=== PATIENT | female | born 1955 | race Caucasian/White ===

== ENCOUNTER 2020-10-04 21:45 | Inpatient (IN) | payer MEDICARE, MEDICAID ==
[~2020-10-04] VITALS: Ht 149.9 cm; Wt 68.0 kg
[2020-10-05 01:33] LABS: COVID AG,FIA SOURCE NASOPHARYNGEAL
[2020-10-05 01:39] LABS: HEMOGLOBIN 14.9 g/dL (12.0-16.0); RED CELL DISTRIBUTION WIDTH 13.5 % (11.5-14.5)
[2020-10-05 01:45] LABS: BASOPHILS % (AUTO) 1.1 % (0.0-2.0); EOSINOPHILS % (AUTO) 5.8 % (1.0-6.0); HEMATOCRIT 45.9 % (36-46); LYMPHOCYTES % (AUTO) 24.5 % (22.0-44.0); MEAN CORPUSCULAR HEMOGLOBIN 29.2 pg (26.0-34.0); MEAN CORPUSCULAR HGB CONC 32.5 G/dL (31.0-37.0); MEAN CORPUSCULAR VOLUME 90 fL (80-100); MONOCYTES # (AUTO) 0.8 K/uL (0.1-1.0); MONOCYTES % (AUTO) 10.2 % (2.0-9.0); NEUTROPHILS # (AUTO) 4.8 K/uL (1.8-7.7); NEUTROPHILS % (AUTO) 58.4 % (40.0-70.0); PLATELET COUNT (AUTO) 174 K/uL (150-450); RED BLOOD CELL COUNT(AUTO) 5.12 MIL/uL (4.00-5.20)
[2020-10-05 01:51] LABS: ANION GAP 7 mmol/L (8-16); CALCIUM, TOTAL 9.1 mg/dL (8.8-10.5); CARBON DIOXIDE 26 mmol/L (22-29); CHLORIDE 107 mmol/L (98-107); CREATININE 0.84 mg/dL (0.60-1.30); GLOMERULAR FILTR. RATE CALC > 60 mL/min (>60); GLUCOSE,RANDOM 108 mg/dL (70-110); POTASSIUM 4.3 mmol/L (3.5-5.1); SODIUM SERUM 140 mmol/L (136-145); UREA NITROGEN, BLOOD 21 mg/dL (7-18)
[2020-10-05 01:55] LABS: D-DIMER 0.39 mg/L FEU (0.00-0.50); PROTHROMBIN TIME 10.4 SEC (9.4-11.6)
[2020-10-05 02:10] LABS: INFLUENZA TYPE A NEGATIVE FOR TYPE A (NEGATIVE); INFLUENZA TYPE B NEGATIVE FOR TYPE B (NEGATIVE)
[2020-10-05 02:13] LABS: B-TYPE NATRIURETIC PEPTIDE 14 pg/mL (0-100)
[2020-10-05 02:15] LABS: ALANINE AMINOTRANSFERASE 56 U/L (12-78); ALBUMIN 3.8 g/dL (3.4-5.0); ALKALINE PHOSPHATASE 83 U/L (46-116); ASPARTATE AMINOTRANSFERASE 27 U/L (15-37); BILIRUBIN,TOTAL 0.2 mg/dL (0.1-1.0); C-REACTIVE PROTEIN QUANT 0.09 mg/dL (0.00-0.30); CREATINE KINASE, TOTAL ONLY 116 U/L (26-192); TOTAL PROTEIN, SERUM 7.3 g/dL (6.4-8.2)
[2020-10-05] MEDS ORDERED: ONDANSETRON HCL 4 MG/2 ML VIAL IVP PRN ×2 (03:00→04:45)
[2020-10-05] MEDS ORDERED: 0.9% SODIUM CHLORIDE 10 ML SYRINGE IVP PRN (03:00)
[2020-10-05] MEDS ORDERED: ACETAMINOPHEN 325 MG TABLET PO PRN ×2 (03:00→04:45)
[2020-10-05] MEDS ORDERED: LEVE250T55 PO (04:55)
[2020-10-05] MEDS ORDERED: CHOL100018 PO (04:55)
[2020-10-05] MEDS ORDERED: ATOR40TA28 PO (04:55)
[2020-10-05] MEDS ORDERED: ASPI-1111 PO (04:55)
[2020-10-05] MEDS ORDERED: DOCU250C14 PO (04:55)
[2020-10-05] MEDS ORDERED: SODIUM CHLORIDE 0.9% 100 ML ONE (04:57)
[2020-10-05] MEDS ORDERED: IOVERSOL 350 MG/ML 100 ML VIAL ONE (04:57)
[2020-10-05 06:38] VITALS: BP 157/94
[2020-10-05 08:35] VITALS: BP 135/68
[2020-10-05] MEDS: ATORVASTATIN CALCIUM 40 MG TABLET PO SCH (09:22)
[2020-10-05] MEDS: CHOLECALCIFEROL (VIT D3) 1,000 UNITS [25 MCG] TABLET PO SCH (09:22)
[2020-10-05] MEDS: HEPARIN SODIUM,PORCINE 5,000 UNITS/ML VIAL SQ SCH ×2 (09:22→16:47)
[2020-10-05] MEDS: ASPIRIN 81 MG DR TABLET PO SCH (09:22)
[2020-10-05] MEDS: LevETIRAcetam 250 MG TABLET PO SCH ×2 (09:23→22:44)
[2020-10-05 15:40] VITALS: BP 118/81
[2020-10-05] MEDS ORDERED: PNEUMOCOCCAL VACCINE POLYVALENT 0.5 ML VIAL [PPSV23] IM ONE (19:00)
[2020-10-05 20:44] VITALS: BP 101/55
[2020-10-06] MEDS: HEPARIN SODIUM,PORCINE 5,000 UNITS/ML VIAL SQ SCH ×3 (00:14→15:53)
[2020-10-06 00:20] VITALS: BP 121/67
[2020-10-06 04:06] VITALS: BP 106/67
[2020-10-06 08:27] LABS: BASOPHILS % (AUTO) 1.3 % (0.0-2.0); EOSINOPHILS % (AUTO) 5.9 % (1.0-6.0); HEMATOCRIT 45.8 % (36-46); HEMOGLOBIN 14.8 g/dL (12.0-16.0); LYMPHOCYTES # (AUTO) 2.8 K/uL (1.0-4.8); LYMPHOCYTES % (AUTO) 36.8 % (22.0-44.0); MEAN CORPUSCULAR HEMOGLOBIN 28.9 pg (26.0-34.0); MEAN CORPUSCULAR HGB CONC 32.3 G/dL (31.0-37.0); MEAN CORPUSCULAR VOLUME 90 fL (80-100); MONOCYTES # (AUTO) 0.7 K/uL (0.1-1.0); MONOCYTES % (AUTO) 9.5 % (2.0-9.0); NEUTROPHILS # (AUTO) 3.6 K/uL (1.8-7.7); NEUTROPHILS % (AUTO) 46.5 % (40.0-70.0); PLATELET COUNT (AUTO) 171 K/uL (150-450); RED BLOOD CELL COUNT(AUTO) 5.11 MIL/uL (4.00-5.20); RED CELL DISTRIBUTION WIDTH 13.5 % (11.5-14.5)
[2020-10-06 08:49] LABS: ALANINE AMINOTRANSFERASE 45 U/L (12-78); ALBUMIN 3.4 g/dL (3.4-5.0); ALKALINE PHOSPHATASE 79 U/L (46-116); ANION GAP 9 mmol/L (8-16); ASPARTATE AMINOTRANSFERASE 24 U/L (15-37); BILIRUBIN,TOTAL 0.4 mg/dL (0.1-1.0); CALCIUM, TOTAL 8.5 mg/dL (8.8-10.5); CARBON DIOXIDE 24 mmol/L (22-29); CHLORIDE 111 mmol/L (98-107); CREATININE 0.76 mg/dL (0.60-1.30); GLOMERULAR FILTR. RATE CALC > 60 mL/min (>60); GLUCOSE,RANDOM 97 mg/dL (70-110); POTASSIUM 4.4 mmol/L (3.5-5.1); SODIUM SERUM 144 mmol/L (136-145); TOTAL PROTEIN, SERUM 6.6 g/dL (6.4-8.2); UREA NITROGEN, BLOOD 20 mg/dL (7-18)
[2020-10-06] MEDS: LevETIRAcetam 250 MG TABLET PO SCH ×2 (09:09→20:14)
[2020-10-06] MEDS: ASPIRIN 81 MG DR TABLET PO SCH (09:09)
[2020-10-06] MEDS: CHOLECALCIFEROL (VIT D3) 1,000 UNITS [25 MCG] TABLET PO SCH (09:09)
[2020-10-06] MEDS: ATORVASTATIN CALCIUM 40 MG TABLET PO SCH (09:09)
[2020-10-06 09:24] VITALS: BP 117/75
[2020-10-06 16:39] VITALS: BP 143/81
[2020-10-06] MEDS ORDERED: LEVE250T55 PO (16:56)
[2020-10-06 20:00] VITALS: BP 137/72
== END 2020-10-06 21:16 | disposition home health service (06) | DRG 951 ==
LOC: EMS 21:45 → 6N 10-05 02:46
PROVIDERS: ADMIT Internal Medicine; ATTEND Internal Medicine
DX: Z20.828 Contact with and (suspected) exposure to other viral communicable diseases (principal); F03.90 Unspecified dementia, unspecified severity, without behavioral disturbance, psychotic disturbance, mood disturbance, and anxiety; E78.5 Hyperlipidemia, unspecified; G40.909 Epilepsy, unspecified, not intractable, without status epilepticus; E55.9 Vitamin D deficiency, unspecified; K59.00 Constipation, unspecified; R30.0 Dysuria; R09.02 Hypoxemia
CPT/HCPCS: 74177; 83605; 85379; 86140; 87081; 87426; 87804; 93005; 97161; 97530; G0238; J1644; J7050; 36415-L1; 36415-TC; 71045-TC; U0003

== ENCOUNTER 2020-12-27 21:29 | Inpatient (IN) | payer MEDICARE, MEDICAID ==
[~2020-12-27 21:29] MED LIST: ASPI-1444 PO; ATOR40TA28 PO; CHOL100044 PO; DOCU250C14 PO; LEVE250T55 PO
[2020-12-27 22:01] VITALS: BP 152/63
[2020-12-27] MEDS ORDERED: DEXTROSE 5%-WATER 1,000 ML IV ONE (22:15)
[2020-12-27] MEDS ORDERED: LevETIRAcetam 1,000 MG in DEXTROSE 5%-WATER 100 ML IV ONE (22:30)
[2020-12-27 23:46] VITALS: BP 150/71
[2020-12-28 02:47] LABS: COVID AG,FIA SOURCE NASAL SWAB
[2020-12-28 04:44] VITALS: BP 138/83
[2020-12-28 06:26] LABS: BASOPHILS % (AUTO) 1.1 % (0.0-2.0); EOSINOPHILS % (AUTO) 2.3 % (1.0-6.0); HEMOGLOBIN 13.7 g/dL (12.0-16.0); LYMPHOCYTES # (AUTO) 2.5 K/uL (1.0-4.8); LYMPHOCYTES % (AUTO) 31.3 % (22.0-44.0); MEAN CORPUSCULAR HEMOGLOBIN 29.6 pg (26.0-34.0); MEAN CORPUSCULAR HGB CONC 33.3 G/dL (31.0-37.0); MEAN CORPUSCULAR VOLUME 89 fL (80-100); MONOCYTES # (AUTO) 0.6 K/uL (0.1-1.0); MONOCYTES % (AUTO) 7.7 % (2.0-9.0); NEUTROPHILS # (AUTO) 4.6 K/uL (1.8-7.7); NEUTROPHILS % (AUTO) 57.6 % (40.0-70.0); PLATELET COUNT (AUTO) 152 K/uL (150-450); RED BLOOD CELL COUNT(AUTO) 4.61 MIL/uL (4.00-5.20); RED CELL DISTRIBUTION WIDTH 15.3 % (11.5-14.5)
[2020-12-28 06:31] LABS: ANION GAP 7 mmol/L (8-16); CALCIUM, TOTAL 8.6 mg/dL (8.8-10.5); CARBON DIOXIDE 27 mmol/L (22-29); CHLORIDE 109 mmol/L (98-107); CREATININE 0.55 mg/dL (0.60-1.30); GLOMERULAR FILTR. RATE CALC > 60 mL/min (>60); GLUCOSE,RANDOM 106 mg/dL (70-110); POTASSIUM 3.5 mmol/L (3.5-5.1); SODIUM SERUM 143 mmol/L (136-145); UREA NITROGEN, BLOOD 19 mg/dL (7-18)
[2020-12-28 07:23] VITALS: BP 149/60
[2020-12-28] MEDS ORDERED: GADOTERATE MEGLUMINE 10 MMOL/20 ML VIAL IVP ONE (08:08)
[2020-12-28] MEDS: LevETIRAcetam 250 MG TABLET PO SCH ×2 (09:02→22:09)
[2020-12-28] MEDS: CHOLECALCIFEROL (VIT D3) 1,000 UNITS [25 MCG] TABLET PO SCH (09:02)
[2020-12-28] MEDS: DOCUSATE SODIUM 250 MG CAPSULE PO SCH (09:02)
[2020-12-28] MEDS: ATORVASTATIN CALCIUM 40 MG TABLET PO SCH (09:02)
[2020-12-28] MEDS: ASPIRIN 81 MG DR TABLET PO SCH (09:02)
[2020-12-28 12:08] VITALS: BP 134/50
[2020-12-28] MEDS: DEXAMETHASONE 4 MG TABLET PO SCH (12:56)
[2020-12-28 16:11] VITALS: BP 138/80
[2020-12-28 20:45] VITALS: BP 128/74
[2020-12-28] MEDS: APIXABAN 2.5 MG TABLET PO SCH (22:09)
[2020-12-29 00:37] VITALS: BP 135/73
[2020-12-29 04:37] VITALS: BP 146/70
[2020-12-29] MEDS: CHOLECALCIFEROL (VIT D3) 1,000 UNITS [25 MCG] TABLET PO SCH (07:52)
[2020-12-29] MEDS: ASPIRIN 81 MG DR TABLET PO SCH (07:53)
[2020-12-29] MEDS: DOCUSATE SODIUM 250 MG CAPSULE PO SCH (07:53)
[2020-12-29] MEDS: ATORVASTATIN CALCIUM 40 MG TABLET PO SCH (07:53)
[2020-12-29] MEDS: DEXAMETHASONE 4 MG TABLET PO SCH (07:53)
[2020-12-29] MEDS: LevETIRAcetam 250 MG TABLET PO SCH ×2 (07:53→22:42)
[2020-12-29] MEDS: APIXABAN 2.5 MG TABLET PO SCH ×2 (07:54→23:29)
[2020-12-29 09:03] VITALS: BP 153/73
[2020-12-29 11:42] VITALS: BP 137/76
[2020-12-29 16:41] VITALS: BP 148/71
[2020-12-29 20:15] VITALS: BP 140/73
[2020-12-29 21:55] LABS: APPEARANCE,URINE CLEAR (CLEAR); BILIRUBIN,URINE NEGATIVE (NEGATIVE); GLUCOSE, URINE (UA) NEGATIVE (NEGATIVE); KETONES,URINE NEGATIVE (NEGATIVE); LEUKOCYTE ESTERASE ,URINE NEGATIVE (NEGATIVE); NITRATE,URINE NEGATIVE (NEGATIVE); OCCULT BLOOD,URINE NEGATIVE (NEGATIVE); PROTEIN,URINE NEGATIVE (NEGATIVE); UROBILINOGEN,URINE 0.2 mg/dL (<=1.0)
[2020-12-29 22:05] LABS: BACTERIA,URINE Rare /HPF (None Seen); RBC,URINE 0-2 /HPF (0-2); SQUAMOUS EPITHELIAL CELL,UR Few /LPF (None Seen); WBC,URINE 0-2 /HPF (0-5)
[2020-12-30 05:28] VITALS: BP 154/65
[2020-12-30 07:54] VITALS: BP 133/67
[2020-12-30] MEDS: LevETIRAcetam 250 MG TABLET PO SCH (08:13)
[2020-12-30] MEDS: ATORVASTATIN CALCIUM 40 MG TABLET PO SCH (08:13)
[2020-12-30] MEDS: DOCUSATE SODIUM 250 MG CAPSULE PO SCH (08:14)
[2020-12-30] MEDS: APIXABAN 2.5 MG TABLET PO SCH (08:14)
[2020-12-30] MEDS: CHOLECALCIFEROL (VIT D3) 1,000 UNITS [25 MCG] TABLET PO SCH (08:14)
[2020-12-30] MEDS: ASPIRIN 81 MG DR TABLET PO SCH (08:14)
[2020-12-30 15:26] VITALS: BP 127/51
[2020-12-30] MEDS ORDERED: APIX2.5T PO (17:38)
== END 2020-12-30 19:30 | DRG 177 ==
LOC: 5S 21:53 → 5N 12-28 03:30 → 6N 12-29 20:15
PROVIDERS: ADMIT Emergency Medicine; ATTEND Emergency Medicine
PROC: 4A00X4Z Measurement of Central Nervous Electrical Activity, External Approach (ICD-10-PCS; principal; 2020-12-28)
DX: U07.1 COVID-19 (principal); G93.41 Metabolic encephalopathy; J12.82 Pneumonia due to coronavirus disease 2019; E87.0 Hyperosmolality and hypernatremia; E44.0 Moderate protein-calorie malnutrition; R79.89 Other specified abnormal findings of blood chemistry; G40.909 Epilepsy, unspecified, not intractable, without status epilepticus; E78.5 Hyperlipidemia, unspecified; E55.9 Vitamin D deficiency, unspecified; E86.0 Dehydration; F03.90 Unspecified dementia, unspecified severity, without behavioral disturbance, psychotic disturbance, mood disturbance, and anxiety; F79 Unspecified intellectual disabilities; E87.8 Other disorders of electrolyte and fluid balance, not elsewhere classified; Z91.14 Patient's other noncompliance with medication regimen; Z79.02 Long term (current) use of antithrombotics/antiplatelets; Z79.01 Long term (current) use of anticoagulants; Z79.899 Other long term (current) drug therapy
CPT/HCPCS: 70553; 83735; 85379; 87081; 87426; 95816; A9575; J0712; J7060; J8540; 36415-L1; 36415-TC; 71045-TC